=== PATIENT | male | born 1985 | race Caucasian/White ===

== ENCOUNTER 2022-11-17 06:06 | Outpatient (REF) | payer OTHER, SELFPAY ==
[2022-11-17 11:35] LABS: MANUAL DIFF FLAG NO
[2022-11-17 11:50] LABS: Appearance Urine Clear; Color Urine Yellow; Glucose Urine UA Negative (Negative); Leukocyte Esterase Urine Negative (Negative); Nitrite Urine Negative (Negative); Specific Gravity - Urine <= 1.005 (1.005-1.025); Urine Blood Negative (Negative); Urine Ketones Negative (Negative); Urine Protein Negative (Neg-Trace)
[2022-11-17 12:01] LABS: Basophils Percent Auto 0.5 % (0-2); Eosinophils Absolute Auto 0.1 X10*3/uL (0.0-0.4); Imm Gran Abs Auto 0.01 X10*3/uL (0.00-0.03); Imm Gran Pct Auto 0.2 % (0.0-0.4); Lymphocytes Absolute Auto 1.9 X10*3/uL (1.2-4.9); Lymphocytes Percent Auto 31.9 % (20-40); Mean Corpuscular HGB Conc 33.3 g/dl (31.0-36.0); Mean Corpuscular Hemoglobin 29.4 pg (27.0-33.0); Mean Corpuscular Volume 88.2 fL (80.0-98.0); Mean Platelet Volume 12.7 fL (9.4-12.4); Monocytes Absolute Auto 0.5 X10*3/uL (0.1-1.2); Monocytes Percent Auto 8.6 % (2-11); Neutrophils Absolute Auto 3.4 x10*3/uL (2.0-8.3); Neutrophils Percent Auto 57.8 % (45-73); Platelet Count 183 X10*3/uL (160-400); Red Cell Distribution Width 12.8 % (11.0-16.0); White Blood Count 5.8 X10*3/uL (4.8-10.8)
[2022-11-17 12:11] LABS: Alanine Aminotransferase 40 U/L (0-40); Albumin Level 4.4 g/dL (3.5-5.0); Alkaline Phosphatase 51 U/L (39-117); Anion Gap 13 (12-20); Aspartate Amino Transferase 26 U/L (5-37); Bilirubin Total 1.6 mg/dL (0.0-1.0); Blood Urea Nitrogen 12 mg/dL (9-16); Calcium 8.8 mg/dL (8.4-10.2); Carbon Dioxide 24 mmol/L (22-29); Chloride 106 mmol/L (96-108); Cholesterol 191 mg/dL; Estimated Glomerular Filt Rate > 60; Glucose Fasting 118 mg/dL (60-99); HDL Cholesterol 39 mg/dL; LDL Cholesterol Calculated 134 mg/dl; Potassium 3.7 mmol/L (3.3-5.1); Sodium 139 mmol/L (135-145); Total Protein 6.6 g/dL (6.5-8.0); Triglycerides 94 mg/dL; Uric Acid 9.7 mg/dL (3.4-7.0)
== END 2022-11-17 06:07 | disposition home or self-care (01) ==
LOC: HO.HMGCLDS 06:06
PROVIDERS: PCP Nurse Practitioner Family; Visit Provider Nurse Practitioner Family
DX: Z00.00 Encounter for general adult medical examination without abnormal findings (principal); M10.9 Gout, unspecified
CPT/HCPCS: 36415; 80053; 80061; 81003; 84443; 84550; 85025

== ENCOUNTER 2022-12-15 06:01 | Outpatient (REF) | payer OTHER, SELFPAY ==
[2022-12-15 12:10] LABS: Alanine Aminotransferase 41 U/L (0-40); Albumin Level 4.5 g/dL (3.5-5.0); Alkaline Phosphatase 54 U/L (39-117); Anion Gap 12 (12-20); Aspartate Amino Transferase 27 U/L (5-37); Bilirubin Direct 0.3 mg/dL (0.0-0.5); Bilirubin Total 1.2 mg/dL (0.0-1.0); Blood Urea Nitrogen 12 mg/dL (9-16); Calcium 9.5 mg/dL (8.4-10.2); Carbon Dioxide 26 mmol/L (22-29); Chloride 104 mmol/L (96-108); Estimated Glomerular Filt Rate > 60; Glucose Random 109 mg/dL (60-115); Potassium 4.3 mmol/L (3.3-5.1); Sodium 138 mmol/L (135-145); Total Protein 6.7 g/dL (6.5-8.0); Uric Acid 6.9 mg/dL (3.4-7.0)
== END 2022-12-15 06:02 | disposition home or self-care (01) ==
LOC: HO.HMGCLDS 06:01
PROVIDERS: PCP Nurse Practitioner Family; Visit Provider Nurse Practitioner Family
DX: M10.9 Gout, unspecified (principal); R17 Unspecified jaundice
CPT/HCPCS: 36415; 80053; 82248; 84550

== ENCOUNTER 2023-05-21 09:22 | Outpatient (AMB) | payer OTHER, SELFPAY ==
--- NOTE | 2023-05-21 09:38 | A.OFFPC_ITS ---
Vital Signs 05/21/23 09:39 Height 5 ft 6 in Weight 190 lb 2 oz BMI 30.7 BP 128/70 Blood Pressure Location Lt brachial Position Sitting Pulse 86 Pulse Source Pulse Oximeter Pulse Oximetry (%) 99 Oxygen Delivery Method Room Air Intake Visit Reasons: 6m follow up Allergies No Known Allergies Allergy (Verified 05/21/23 09:40) Tobacco use date assessed: 05/21/23 Dental Screening Dental Screen Date: 05/21/23 Did you have a dental visit in the last 12 months?: No Did you have a dental problem in the last 6 months where you did not have access to dental care?: No Was dental information given to patient?: Patient has dentist HPI 6m follow up HPI Details Gout: Pt is currently taking allopurinol 450mg and indomethacin 75mg prn. He reports that these medications are helpful. Pt's last liver enzymes were elevated. Will repeat labs. Pt is working on his diet and doing intermittent fasting. Denies fever, chills, and N/V/D. [facility] Social History Housing: House Patient Tobacco Use Status: Former Tobacco user e-Cigarette/Vaping Use: Currently Using service: No Current occupational status: employed Cognitive needs: No Hearing needs: No Vision needs: No Questionnaire Thrive Questionnaire Date Thrive assessed: 11/13/22 KIRA-7 AMB Questionnaire KIRA-7 Date KIRA - 7 assessed: 11/13/22 Source: Developed by Drs. Jose Esparza, Cathleen Clarke, Buzz Aguilar and colleagues, with an educational mima from [employer]. Review of Systems Const Reports as per HPI Physical exam (Primary Care) Vital Signs: Last Vital Signs Pulse 86 05/21/23 09:39 BP 128/70 05/21/23 09:39 Pulse Ox 99 05/21/23 09:39 Oxygen Delivery Method Room Air 05/21/23 09:39 BMI result Body Mass Index 30.7 Tobacco/Smoking Status: Tobacco use Status Tobacco use date assessed 05/21/23 05/21/23 09:43 Patient Tobacco Use Status Former Tobacco user 05/21/23 09:38 e-Cigarette/Vaping Use Currently Using 05/21/23 09:38 Thrive Assessment: Date of Thrive Assessment Date Thrive assessed 11/13/22 05/21/23 09:38 Const General: cooperative Orientation/consciousness: patient oriented x3 Resp Effort & Inspection: normal respiratory effort Auscultation: clear to auscultation bilaterally Cardio Rate: regular rate Rhythm: regular rhythm Heart sounds: S1 normal heart sound present, S2 normal heart sound present and no murmurs Neuro General: patient oriented x3 Extrem Right lower extremity: no edema Left lower extremity: no edema Psych Appearance: grossly normal Mental Status: mental status grossly normal Speech and movement: Normal speech and movement present Affect: normal affect Attitude: cooperative Thought process: Normal thought process present Thought content: Normal thought content present Insight: Good insight present (Psych) Judgement: Good judgement present (Psych) Assessment and Plan Assessment & Plan (1) Elevated liver enzymes: Code(s): R74.8 - Abnormal levels of other serum enzymes (2) Gout: Code(s): M10.9 - Gout, unspecified Plan The patient agreed to the use of a medical receptionist medical assistant for this encounter. Scribed for LIZBETH Molina by Danette Washington medical receptionist medical assistant, on 05/21/2023 at 09:55 EST. Orders: Orders Complete Blood Count Auto Diff Today R74.8 - Abnormal levels of other serum enzymes Comprehensive Met. Panel Today R74.8 - Abnormal levels of other serum enzymes Coding Level of Care Code Est Pt Level 3 (50257) Diagnoses Elevated liver enzymes R74.8 Gout M10.9
[2023-05-21 09:39] VITALS: BP 128/70; PULSE 86; O2SAT 99; BMI 30.7
== END 2023-05-21 11:49 | disposition home or self-care (01) ==
PROVIDERS: Visit Provider Nurse Practitioner Family
DX: R74.8 Abnormal levels of other serum enzymes (principal); M10.9 Gout, unspecified
CPT/HCPCS: 99213

== ENCOUNTER 2025-06-21 06:12 | Outpatient (REF) | payer OTHER, SELFPAY ==
[2025-06-21 10:38] LABS: MANUAL DIFF FLAG NO
[2025-06-21 10:42] LABS: Hematocrit 43.4 % (42.0-52.0); Hemoglobin 14.5 g/dl (14.0-18.0); Imm Gran Abs Auto 0.02 X10*3/uL (0.00-0.03); Imm Gran Pct Auto 0.3 % (0.0-0.4); Lymphocytes Absolute Auto 2.1 X10*3/uL (1.2-4.9); Mean Corpuscular HGB Conc 33.4 g/dl (31.0-36.0); Mean Corpuscular Hemoglobin 29.9 pg (27.0-33.0); Mean Corpuscular Volume 89.5 fL (80.0-98.0); NRBC Abs Auto 0.000 X10*3/uL (0.0-0.012); NRBC Pct Auto 0.0 /100WBC (0.0-0.2); Platelet Count 164 X10*3/uL (160-400); Red Blood Count 4.85 X10*6/uL (4.60-5.80); White Blood Count 6.1 X10*3/uL (4.8-10.8)
[2025-06-21 10:58] LABS: Appearance Urine Clear; Glucose Urine UA Negative (Negative); PH 6.5 (5.0-9.0); Specific Gravity - Urine <= 1.005 (1.005-1.025)
[2025-06-21 11:24] LABS: Alanine Aminotransferase 19 U/L (0-40); Albumin Level 4.9 g/dL (3.5-5.0); Alkaline Phosphatase 70 U/L (39-117); Anion Gap 13 (12-20); Aspartate Amino Transferase 21 U/L (5-37); Blood Urea Nitrogen 16 mg/dL (9-16); Calcium 9.2 mg/dL (8.4-10.2); Carbon Dioxide 26 mmol/L (22-29); Chloride 103 mmol/L (96-108); Cholesterol 215 mg/dL (<200); Estimated Glomerular Filt Rate > 60; HDL Cholesterol 46 mg/dL (>40); Potassium 3.7 mmol/L (3.3-5.1); Sodium 138 mmol/L (135-145); Total Protein 7.1 g/dL (6.5-8.0); Triglycerides 170 mg/dL (<150); Uric Acid 5.1 mg/dL (3.4-7.0)
== END 2025-06-21 06:13 | disposition home or self-care (01) ==
LOC: HO.HMGCLDS 06:12
PROVIDERS: PCP Nurse Practitioner Family; Visit Provider Nurse Practitioner Family
DX: Z00.00 Encounter for general adult medical examination without abnormal findings (principal); M10.9 Gout, unspecified; Z13.6 Encounter for screening for cardiovascular disorders; Z13.29 Encounter for screening for other suspected endocrine disorder
CPT/HCPCS: 36415; 80053; 80061; 81003; 84443; 84550; 85025

== ENCOUNTER 2025-06-22 13:42 | Outpatient (AMB) | payer OTHER, SELFPAY ==
[2025-06-22 13:56] VITALS: BP 122/62; PULSE 88; RESP 16; O2SAT 99; BMI 31.6
--- NOTE | 2025-06-22 13:56 | MHC.PC.OV ---
Vital Signs 06/22/25 13:56 Height 5 ft 6 in Weight 196 lb BMI 31.6 BP 122/62 Blood Pressure Location Lt brachial Position Sitting Respiration 16 Pulse 88 Pulse Source Pulse Oximeter Pulse Oximetry (%) 99 Oxygen Delivery Method Room Air Intake Visit Reasons: PE [place] Required: No Accompanied by: Self / Same As Patient Allergies No Known Allergies Allergy (Verified 06/22/25 14:28) Medication List - Last Reconciled 06/22/25 by SHARON TraylorP- allopurinol 450 mg (1.5 x 300 mg) PO DAILY 90 days indomethacin ER 75 mg PO BID PRN 15 days Tobacco use date assessed: 06/22/25 Dental Screening Dental Screen Date: 06/22/25 Did you have a dental visit in the last 12 months?: Yes Did you have a dental problem in the last 6 months where you did not have access to dental care?: No Was dental information given to patient?: Patient has dentist HPI PE HPI Details History of Present Illness The patient is a 39-year-old male presenting with a follow-up physical exam and lab review. The patient has a history of hyperlipidemia, with recent lab results indicating a slight increase in cholesterol levels. He plans to manage this through dietary modifications and will repeat cholesterol labs in approximately two months. The patient also has a history of gout, with recent uric acid levels within normal limits. He will continue monitoring his condition with repeat labs in two months. Health Maintenance - Dietary modifications for cholesterol management - Regular monitoring of uric acid levels Social History Review of Systems - Cardiovascular: Denies chest pain, denies dyspnea - Gastrointestinal: Denies abdominal pain, denies hematochezia, denies constipation, denies diarrhea - Psychiatric: Denies suicidal ideation, denies homicidal ideation Physical Exam General: Cooperative, healthy appearing, comfortable, no acute distress and well developed Orientation: Patient oriented x3 Limitations: No limitations Head: Normal to inspection Ears: Hearing grossly normal bilaterally Nose: Normal external nose present Face and sinus: Normal facial exam Eyes: Appearance normal, both eyes and all related structures Neck: Normal visual inspection and Yes full ROM Respiratory: Normal respiratory effort and able to speak in complete sentences. Clear to auscultation bilaterally Cardiovascular: Regular rate and rhythm. Normal S1 and S2 GI: Normal to inspection. Soft to palpation and nontender : Testicles without masses/lesions and no hernias appreciated Skin: No rashes or lesions noted Neuro: Patient oriented x3 Extremities: Normal to inspection Results - Labs: Cholesterol levels elevated, uric acid levels within normal limits Plan 1. Hyperlipidemia The patient will manage hyperlipidemia through dietary modifications and will repeat cholesterol labs in two months to assess progress. 2. Gout The patient will continue monitoring uric acid levels, which are currently within normal limits, and will repeat labs in two months. Discussion Notes I discussed with the patient the importance of dietary modifications to manage hyperlipidemia and the plan to repeat cholesterol labs in two months. We also reviewed the patient's history of gout and the current normal uric acid levels, with a plan to monitor and repeat labs in two months. Patient Instructions - Follow a diet plan to help lower cholesterol levels. - Return for repeat cholesterol and uric acid labs in two months. [facility] Surgical History History of umbilical hernia repair Social History Housing: House Patient Tobacco Use Status: Former Tobacco user e-Cigarette/Vaping Use: Currently Using service: No Current occupational status: employed Cognitive needs: No Hearing needs: No Vision needs: No Questionnaire PHQ-9 Over the last 2 weeks, how often have you been bothered by any of the following problems? 1. Little interest or pleasure in doing things: not at all 2. Feeling down, depressed, or hopeless: not at all 3. Trouble falling or staying asleep, or sleeping too much: not at all 4. Feeling tired or having little energy: not at all 5. Poor appetite or overeating: not at all 6. Feeling bad about yourself - or that you are a failure or have let yourself or your family down: not at all 7. Trouble concentrating on things, such as reading the newspaper or watching television: not at all 8. Moving or speaking so slowly that other people could have noticed. Or the opposite - being so fidgety or restless that you have been moving around a lot more than usual: not at all 9. Thoughts that you would be better off or of hurting yourself in some way: not at all Total score: 0 Depression Screening Interpretation: Negative Depression Screening Done: Yes 69926 - PHQ-9 Billing: Yes Source: Developed by Drs. Jose Esparza, Cathleen Clarke, Buzz Aguilar and colleagues, with an educational mima from [employer]. Thrive Questionnaire Date Thrive assessed: 11/13/22 I am a: Patient What is your living situation today?: I have a steady place to live Within the past 12 months, did the food you bought not last and you didn't have the money to get more?: Never true Within the past 12 months, did you worry whether your food would run out before you got money to buy more?: Never true Do you have trouble paying for medicines?: No Do you have trouble getting transportation to medical appointments?: No Do you have trouble paying your heating and electricity bill?: No Do you have trouble taking care of your child, family member or friend?: No Do you have trouble with day-to-day activities such as bathing, preparing meals, shopping, managing finances, etc.?: No Are you currently unemployed and looking for a job?: No Are you interested in more education?: No Please select the resources that you would like help with: None Currently or been in a relationship where the following occur: No concerns reported THRIVE Score: 0 AUDIT C Alcohol Use Questionnaire (AUDIT-C) 1. How often do you have a drink containing alcohol?: 2-4 times a month 2. How many drinks containing alcohol do you have on a typical day when you are drinking?: 3 or 4 3. How often do you have six or more drinks on one occasion?: Less than monthly Total Score: 4 KIAR-7 AMB Questionnaire KIRA-7 Date KIRA - 7 assessed: 06/22/25 Feeling nervous, anxious, or on edge: 1 = Several days Not being able to stop or control worryin = Not at all Worrying too much about different things: 1 = Several days Trouble relaxin = Not at all Being so restless that it is hard to sit still: 0 = Not at all Becoming easily annoyed or irritable: 2 = More than half the days Feeling afraid as if something awful might happen: 0 = Not at all Total KIRA-7 score (0-4 normal; 5-9 mild; 10-14 moderate; 15-21 severe): 4 Source: Developed by Drs. Jose LCathleen Pool Kurt Kroenke and colleagues, with an educational mima from [employer]. KIRA-7 Assessment Billing KIRA-7 Assessment Tool: KIRA-7 Assessment 21049 Physical exam (Primary Care) Vital Signs: Last Vital Signs Pulse 88 06/22/25 13:56 Resp 16 06/22/25 13:56 BP 122/62 06/22/25 13:56 Pulse Ox 99 06/22/25 13:56 Oxygen Delivery Method Room Air 06/22/25 13:56 BMI result Body Mass Index 31.6 Tobacco/Smoking Status: Tobacco use Status Tobacco use date assessed 06/22/25 06/22/25 14:01 Patient Tobacco Use Status Former Tobacco user 06/22/25 13:57 e-Cigarette/Vaping Use Currently Using 06/22/25 13:57 PHQ-9: PHQ-9 Score PHQ-9: Total score 0 06/22/25 14:01 Depression Screening Interpretation: Negative Thrive Assessment: Date of Thrive Assessment Date Thrive assessed 11/13/22 06/22/25 13:57 Currently or been in a relationship where the following occur: No concerns reported Coding Level of Care Code Est Pt Level 3 (91712) Est Pt Prev Care 40-64y(36694) Diagnoses Dyslipidemia E78.5 Encounter for routine adult physical exam with abnormal findings Z00. Gout M10.9 Additional Codes PHQ-9 - 43063 - PHQ-9 Billing: Yes ([id number]) KIRA-7 Assessment Billing - KIRA-7 Assessment Tool: KIRA-7 Assessment 13239 ([id number]) Assessment & Plan Assessment & Plan (1) Dyslipidemia: Code(s): E78.5 - Hyperlipidemia, unspecified Category: Medical (2) Encounter for routine adult physical exam with abnormal findings: Code(s): Z00.01 - Encounter for general adult medical examination with abnormal findings Category: Medical (3) Gout: Code(s): M10.9 - Gout, unspecified Category: Medical Plan . Orders: Orders Comprehensive [place]. Panel Fast 2 Months E78.5 - Hyperlipidemia, unspecified Lipid Panel 2 Months E78.5 - Hyperlipidemia, unspecified
== END 2025-06-22 14:55 | disposition home or self-care (01) ==
LOC: HO.HMCC 13:42
PROVIDERS: PCP Nurse Practitioner Family; Visit Provider Nurse Practitioner Family
DX: Z00.00 Encounter for general adult medical examination without abnormal findings (principal); E78.5 Hyperlipidemia, unspecified; M10.9 Gout, unspecified

== ENCOUNTER → 2025-06-22 13:42 | Outpatient (BNVA) | payer OTHER, SELFPAY | PROVIDERS: PCP Nurse Practitioner Family; Visit Provider Nurse Practitioner Family | DX: Z00.01 Encounter for general adult medical examination with abnormal findings (principal); E78.5 Hyperlipidemia, unspecified; M10.9 Gout, unspecified | CPT/HCPCS: 96127 ==